=== PATIENT | female | born 1960 | race African-American/Black ===

== ENCOUNTER 2017-04-20 13:43 | Emergency (ER) | payer OTHER ==
[2017-04-20 14:12] LABS: Hematocrit 32.1 % (36.0-47.0); Mean Platelet Volume 6.2 fL (7.4-10.4); Red Blood Cell (RBC) Count 3.33 mill/uL (4.20-5.40)
[2017-04-20 14:31] LABS: Neutrophil 42 % (42-75)
[2017-04-20 14:32] LABS: ALT (SGPT) 22 U/L (8-55); AST (SGOT) 48 U/L (5-34); Alkaline Phosphatase 62 U/L (40-150); Anion Gap 16 mmol/L (10-20); BUN (Urea Nitrogen) 8 mg/dL (9.8-20.1); Bilirubin, Total 0.4 mg/dL (0.2-1.2); CK (CPK) 403 U/L (29-168); Calc. Creatinine Clearance 0 mL/min (70-130); Calcium 9.5 mg/dL (7.8-10.44); Carbon Dioxide 22 mmol/L (22-29); Chloride 103 mmol/L (98-107); Estimated GFR-MDRD Greater than 90; Globulin 3.7 g/dL (2.4-3.5); Protein, Total 7.7 g/dL (6.0-8.3)
[2017-04-20 14:37] LABS: Troponin I Less than 0.010 ng/mL (< 0.028)
--- NOTE | 2017-04-20 14:58 | RAD ---
UPRIGHT PORTABLE CHEST ONE VIEW: History: 56-year-old female with rapid heartbeat, beating out of her chest. Pulse 112. Comparison: 10-12-11 FINDINGS: Monitor leads overlie the chest. 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 Heart size is normal. The lungs are clear. 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 No acute intrathoracic disease. POS: [facility]
[2017-04-20 16:01] LABS: Amphetamine Not Detected (NotDetected); Methadone Not Detected (NotDetected); Methamphetamine Not Detected (NotDetected)
--- NOTE | 2017-06-07 12:37 | EKG ---
Test Reason : Blood Pressure : / mmHG Vent. Rate : 083 BPM Atrial Rate : 083 BPM P-R Int : 152 ms QRS Dur : 078 ms QT Int : 398 ms P-R-T Axes : 081 041 064 degrees QTc Int : 467 ms Normal sinus rhythm Possible Left atrial enlargement Septal infarct , age undetermined No STEMI Abnormal ECG Confirmed by ALVERTO GHOTRA ([id number]), copy editor IGOR FRANKS ([id number]) on 06/07/2017 12:37:21 PM Referred By: Confirmed By:ALVERTO GHOTRA
== END 2017-04-20 16:42 | disposition home or self-care (01) ==
LOC: ERS 13:43
DX: F14.10 Cocaine abuse, uncomplicated (principal)
CPT/HCPCS: 36415; 71010; 80053; 80306; 82553; 83690; 83880; 84484; 85025; 93005; 96360; 99406

== ENCOUNTER 2017-10-04 11:37 | Emergency (ER) | payer OTHER | END 2017-10-04 12:33 | disposition home or self-care (01) | LOC: ERS 11:37 | DX: S76.312A Strain of muscle, fascia and tendon of the posterior muscle group at thigh level, left thigh, initial encounter (principal); S76.311A Strain of muscle, fascia and tendon of the posterior muscle group at thigh level, right thigh, initial encounter; X50.1XXA Overexertion from prolonged static or awkward postures, initial encounter | CPT/HCPCS: 99283 ==

== ENCOUNTER 2018-08-22 07:02 | Emergency (ER) | payer OTHER ==
[2018-08-22] MEDS ORDERED: Ketorolac Tromethamine 30 MG/ML VIAL ONE (09:06)
[2018-08-22] MEDS ORDERED: Cyclobenzaprine 10 MG TAB ONE (09:06)
== END 2018-08-22 10:32 | disposition home or self-care (01) ==
LOC: ERS 07:02
DX: S16.1XXA Strain of muscle, fascia and tendon at neck level, initial encounter (principal); X58.XXXA Exposure to other specified factors, initial encounter
CPT/HCPCS: 96372; J1885

== ENCOUNTER 2019-01-11 05:22 | Emergency (ER) | payer OTHER ==
[2019-01-11] MEDS ORDERED: Dexamethasone 10 MG/ML VIAL ONE (06:49)
== END 2019-01-11 07:11 | disposition home or self-care (01) ==
LOC: ERS 05:22
DX: J02.9 Acute pharyngitis, unspecified (principal)
CPT/HCPCS: 87081; 87430; 99283; J1100

== ENCOUNTER 2019-01-18 01:46 | Emergency (ER) | payer OTHER ==
[2019-01-18] MEDS ORDERED: Lorazepam 1 MG TAB ONE (02:09)
[2019-01-18 02:31] LABS: #Basophils 0.1 thou/uL (0.0-0.2); #Lymphocytes 1.3 thou/uL (1.20-3.40); #Monocytes 0.7 thou/uL (0.11-0.59); #Neutrophils 4.1 thou/uL (1.40-6.50); %Basophils 1.2 % (0.0-1.0); %Eosinophils 0.5 % (0.0-10.0); %Lymphocytes 21.5 % (21.0-51.0); %Monocytes 10.7 % (0.0-10.0); %Neutrophils 66.1 % (42.0-75.0); Hemoglobin 11.7 g/dL (12.0-16.0); Mean Corpuscular Volume 94.4 fL (78.0-98.0); Mean Platelet Volume 6.7 fL (7.4-10.4); Platelet Count 249 thou/uL (130-400); RBC Distribution Width 12.5 % (11.5-14.5); Red Blood Cell (RBC) Count 3.53 mill/uL (4.20-5.40); White Blood Cell (WBC) Count 6.2 thou/uL (4.8-10.8)
[2019-01-18 02:52] LABS: ALT (SGPT) 15 U/L (8-55); AST (SGOT) 64 U/L (5-34); Albumin 4.3 g/dL (3.5-5.0); Alkaline Phosphatase 86 U/L (40-150); Anion Gap 18 mmol/L (10-20); BUN (Urea Nitrogen) 10 mg/dL (9.8-20.1); Bilirubin, Total 0.4 mg/dL (0.2-1.2); CK (CPK) 289 U/L (29-168); Calc. Creatinine Clearance 0 mL/min (70-130); Calcium 9.3 mg/dL (7.8-10.44); Carbon Dioxide 20 mmol/L (22-29); Chloride 103 mmol/L (98-107); Estimated GFR-MDRD Greater than 90; Globulin 3.8 g/dL (2.4-3.5); Glucose 88 mg/dL (70-105); Potassium 3.9 mmol/L (3.5-5.1); Protein, Total 8.1 g/dL (6.0-8.3); Sodium 137 mmol/L (136-145)
--- NOTE | 2019-01-18 09:30 | RAD ---
SINGLE VIEW OF THE CHEST: COMPARISON: 04/20/2017. HISTORY: Difficulty breathing and cough. FINDINGS: Single view of the chest shows a normal sized cardiomediastinal silhouette. There is no evidence of c onsolidation, mass, or pleural effusion. Chronic bony changes are seen in the distal right clavicle. IMPRESSION: No evidence of acute cardiopulmonary disease. POS: [facility]
--- NOTE | 2019-01-18 09:43 | RAD ---
TWO VIEWS OF THE NECK SOFT TISSUES: COMPARISON: None. HISTORY: Difficulty breathing. FINDINGS: Two views of the neck soft tissues show no evidence of prevertebral soft tissue swelling. No radiopa que foreign body is seen. The epiglottis is normal in thickness. There is no evidence of a steeple sign. Degenerative changes are seen in the mid cervical spine. IMPRESSION: No significant soft tissue abnormality of the neck. POS: [facility]
--- NOTE | 2019-01-23 10:12 | EKG ---
Test Reason : Blood Pressure : / mmHG Vent. Rate : 077 BPM Atrial Rate : 077 BPM P-R Int : 148 ms QRS Dur : 076 ms QT Int : 416 ms P-R-T Axes : 077 027 049 degrees QTc Int : 470 ms Normal sinus rhythm Normal ECG Confirmed by RADHA DIANA, ([id number]), magazine editor IGOR FRANKS ([id number]) on 01/23/2019 10:12:06 AM Referred By: Confirmed By:MICHAEL GARCIA MD
== END 2019-01-18 03:11 | disposition home or self-care (01) ==
LOC: ERS 01:46
DX: F41.9 Anxiety disorder, unspecified (principal); R06.00 Dyspnea, unspecified
CPT/HCPCS: 36415; 70360; 71045; 80053; 82550; 84484; 85025; 93005

== ENCOUNTER 2019-02-27 11:12 | Emergency (ER) | payer OTHER ==
--- NOTE | 2019-02-27 11:39 | RAD ---
EXAM: CHEST ONE VIEW HISTORY: Patient tripped and fell. Patient now complains of left lateral rib pain. COMPARISON: 01/18/2019 FINDINGS: Cardiac silhouette is magnified by projection but stable in size. The pulmonary vasculature is within normal limits. The lungs are clear. There is ossification seen in the region of the coracoclavicular ligament which is stable from prior exam. IMPRESSION: No acute cardiopulmonary process.
== END 2019-02-27 11:45 | disposition home or self-care (01) ==
LOC: ERS 11:12
DX: S20.412A Abrasion of left back wall of thorax, initial encounter (principal); W01.190A Fall on same level from slipping, tripping and stumbling with subsequent striking against furniture, initial encounter
CPT/HCPCS: 71045

== ENCOUNTER 2019-05-09 11:25 | Emergency (ER) | payer OTHER | END 2019-05-09 12:05 | disposition home or self-care (01) | LOC: ERS 11:25 | DX: H92.02 Otalgia, left ear (principal) | CPT/HCPCS: 99282 ==

== ENCOUNTER 2020-06-12 17:17 | Emergency (ER) | payer OTHER | END 2020-06-12 20:33 | disposition home or self-care (01) | LOC: ERS 17:17 | DX: R04.0 Epistaxis (principal); I10 Essential (primary) hypertension | CPT/HCPCS: 99283 ==

== ENCOUNTER 2021-06-29 11:37 | Emergency (ER) | payer OTHER ==
[2021-06-29 12:15] LABS: #Lymphocytes 1.3 thou/uL (1.20-3.40); #Monocytes 0.3 thou/uL (0.11-0.59); #Neutrophils 1.6 thou/uL (1.40-6.50); %Eosinophils 0.9 % (0.0-10.0); %Lymphocytes 38.2 % (21.0-51.0); %Monocytes 9.7 % (0.0-10.0); %Neutrophils 50.2 % (42.0-75.0); Hemoglobin 11.6 g/dL (12.0-16.0); Mean Corpuscular Hemoglobin 31.7 pg (27.0-31.0); Mean Corpuscular Volume 93.4 fL (78.0-98.0); Mean Platelet Volume 6.5 fL (7.4-10.4); Platelet Count 245 thou/uL (130-400); RBC Distribution Width 12.8 % (11.5-14.5); Red Blood Cell (RBC) Count 3.66 mill/uL (4.20-5.40); White Blood Cell (WBC) Count 3.3 thou/uL (4.8-10.8)
[2021-06-29 12:38] LABS: ALT (SGPT) 28 U/L (8-55); AST (SGOT) 58 U/L (5-34); Alkaline Phosphatase 79 U/L (40-110); Anion Gap 14 mmol/L (10-20); BUN (Urea Nitrogen) 12 mg/dL (9.8-20.1); Bilirubin, Total 0.3 mg/dL (0.2-1.2); Calc. Creatinine Clearance 0 mL/min (70-130); Calcium 9.2 mg/dL (7.8-10.44); Carbon Dioxide 23 mmol/L (22-29); Chloride 107 mmol/L (98-107); Globulin 3.7 g/dL (2.4-3.5); Glucose 89 mg/dL (70-105); Potassium 3.9 mmol/L (3.5-5.1); Protein, Total 7.7 g/dL (6.0-8.3); Sodium 140 mmol/L (136-145)
[2021-06-29 13:31] LABS: Bilirubin Negative (Negative); Blood, Urine Negative (Negative); Glucose, Urine (Dipstick) Negative (Negative); Ketone, Urine Negative (Negative); Leukocyte Negative (Negative); Nitrite Negative (Negative); Protein, Urine (Dipstick) Negative (Neg-Trace); Urobilinogen 0.2 mg/dL (Less than 2)
[2021-06-29 13:36] LABS: Clarity Clear (Clear); Specific Gravity, Urine 1.005 (1.002-1.036)
[2021-06-29 13:37] LABS: Bacteria/HPF Rare-Few HPF (None Seen); RBC/HPF 0-3 HPF (0-3); Squamous Epithelial 0-3 HPF (0-3); WBC/HPF 0-3 HPF (0-3)
[2021-06-29] MEDS ORDERED: Ketorolac Tromethamine 30 MG/ML VIAL ONE (16:09)
== END 2021-06-29 16:16 | disposition home or self-care (01) ==
LOC: ERS 11:37
DX: R10.2 Pelvic and perineal pain (principal); I10 Essential (primary) hypertension
CPT/HCPCS: 36415; 80053; 81003; 85025; 87086; 94760; 96374; J1885

== ENCOUNTER 2021-11-11 09:16 | Emergency (ER) | payer OTHER ==
[2021-11-11] MEDS ORDERED: Acetaminophen 325 MG TAB ONE (10:27)
[2021-11-11] MEDS ORDERED: Ibuprofen 200 MG TAB ONE (10:27)
== END 2021-11-11 11:22 | disposition home or self-care (01) ==
LOC: ERS 09:16
DX: J06.9 Acute upper respiratory infection, unspecified (principal); Z20.822 Contact with and (suspected) exposure to COVID-19; I10 Essential (primary) hypertension
CPT/HCPCS: 93005; U0003; U0005

== ENCOUNTER 2022-03-26 20:41 | Emergency (ER) | payer OTHER ==
[2022-03-26] MEDS ORDERED: Albuterol 200 PUFF (6.7GM INHALER) ONE (21:15)
[2022-03-26] MEDS ORDERED: Acetaminophen 500 MG TAB ONE (22:41)
== END 2022-03-26 22:45 | disposition home or self-care (01) ==
LOC: ERS 20:41
DX: R04.0 Epistaxis (principal); J20.8 Acute bronchitis due to other specified organisms; I10 Essential (primary) hypertension; Z20.822 Contact with and (suspected) exposure to COVID-19
CPT/HCPCS: 71045; 93005; U0003; U0005

== ENCOUNTER 2022-09-25 18:55 | Emergency (ER) | payer OTHER ==
[2022-09-25 19:59] LABS: #Basophils 0.1 thou/uL (0.0-0.2); #Eosinphils 0.1 thou/uL (0.0-0.7); #Lymphocytes 1.6 thou/uL (1.20-3.40); #Monocytes 0.4 thou/uL (0.11-0.59); %Basophils 1.3 % (0.0-1.0); %Eosinophils 1.9 % (0.0-10.0); %Lymphocytes 39.3 % (21.0-51.0); %Monocytes 8.6 % (0.0-10.0); %Neutrophils 48.8 % (42.0-75.0); Hemoglobin 10.9 g/dL (12.0-16.0); Mean Corpuscular Volume 94.1 fl (78.0-98.0); Mean Platelet Volume 7.4 fL (7.4-10.4); Platelet Count 227 10x3/uL (130-400); RBC Distribution Width 12.1 % (11.5-14.5); White Blood Cell (WBC) Count 4.2 10x3/uL (4.8-10.8)
[2022-09-25 20:17] LABS: ALT (SGPT) 27 U/L (8-55); AST (SGOT) 52 U/L (5-34); Alkaline Phosphatase 64 U/L (40-110); Anion Gap 13 mmol/L (10-20); BUN (Urea Nitrogen) 11 mg/dL (9.8-20.1); Bilirubin, Total 0.3 mg/dL (0.2-1.2); Calc. Creatinine Clearance 0 mL/min (70-130); Calcium 9.4 mg/dL (7.8-10.44); Carbon Dioxide 23 mmol/L (22-29); Chloride 107 mmol/L (98-107); Estimated GFR 86; Globulin 3.3 g/dL (2.4-3.5); Glucose 71 mg/dL (70-105); Lipase 42 U/L (8-78); Potassium 3.1 mmol/L (3.5-5.1); Protein, Total 7.3 g/dL (6.0-8.3); Sodium 140 mmol/L (136-145)
[2022-09-25] MEDS ORDERED: Ketorolac Tromethamine 30 MG/ML VIAL ONE (21:36)
[2022-09-25] MEDS ORDERED: Labetalol HCl 100 MG TAB ONE (21:37)
[2022-09-25] MEDS ORDERED: Labetalol HCl 100 MG/20 ML VIAL ONE (21:38)
== END 2022-09-25 23:17 | disposition home or self-care (01) ==
LOC: ERS 18:55
DX: G44.209 Tension-type headache, unspecified, not intractable (principal); R07.9 Chest pain, unspecified; I10 Essential (primary) hypertension; D72.819 Decreased white blood cell count, unspecified
CPT/HCPCS: 36415; 70450; 71045; 80053; 83690; 83880; 84484; 85025; 93005; 96374; J1885

== ENCOUNTER 2023-02-16 10:55 | Emergency (ER) | payer OTHER ==
[2023-02-16 12:05] LABS: SARS-CoV-2 NAA Rapid Test Not Detected (NotDetected)
== END 2023-02-16 11:58 | disposition home or self-care (01) ==
LOC: ERS 10:55
DX: B34.9 Viral infection, unspecified (principal); J02.9 Acute pharyngitis, unspecified; I10 Essential (primary) hypertension; J44.9 Chronic obstructive pulmonary disease, unspecified; Z20.822 Contact with and (suspected) exposure to COVID-19
CPT/HCPCS: 87081; 87430; 99283

== ENCOUNTER 2023-03-25 07:06 | Outpatient (CLI) | payer OTHER | END 2023-03-25 07:07 | disposition home or self-care (01) | LOC: BICCT 07:06 | PROVIDERS: ATTEND Family Medicine | DX: F17.218 Nicotine dependence, cigarettes, with other nicotine-induced disorders (principal); R91.1 Solitary pulmonary nodule | CPT/HCPCS: 71250 ==

== ENCOUNTER 2023-04-29 13:34 | Emergency (ER) | payer OTHER ==
[2023-04-29] MEDS ORDERED: Lidocaine 1% PF 5 ML VIAL ONE (14:32)
[2023-04-29] MEDS ORDERED: HYDROcodone/Acetaminophen 10/325 mg Tablet ONE (15:49)
[2023-04-29] MEDS ORDERED: TETANUS, DIPHTHERIA TOX,ADULT (TDVAX) 0.5 ML VIAL IM ONE (15:50)
[2023-04-29] MEDS ORDERED: Boostrix 0.5 ML (Tdap) VIAL (>/=7 yrs of age) ONE (15:55)
== END 2023-04-29 16:18 | disposition home or self-care (01) ==
LOC: ERS 13:34
DX: L02.512 Cutaneous abscess of left hand (principal); I10 Essential (primary) hypertension; J44.9 Chronic obstructive pulmonary disease, unspecified
CPT/HCPCS: 26010; 90471; 90714; 90715

== ENCOUNTER 2025-04-12 08:22 | Emergency (ER) | payer OTHER ==
[2025-04-12] MEDS ORDERED: Dexamethasone 10 MG/ML VIAL ONE (11:33)
[2025-04-12] MEDS ORDERED: Gabapentin 100 MG CAP ONE (11:34)
== END 2025-04-12 12:10 | disposition home or self-care (01) ==
LOC: ERS 08:22
DX: L03.011 Cellulitis of right finger (principal); M54.2 Cervicalgia; G89.29 Other chronic pain; I10 Essential (primary) hypertension; J44.9 Chronic obstructive pulmonary disease, unspecified; Z87.891 Personal history of nicotine dependence
CPT/HCPCS: 99282; J1100